=== PATIENT | female | born 1990 | race Caucasian/White ===

== ENCOUNTER 2017-06-20 16:15 | Inpatient (IN) | payer MEDICAID ==
[~2017-06-20] VITALS: Ht 154.9 cm; Wt 46.7 kg
--- NOTE | 2017-06-20 16:35 | NUR ---
PT TO ER BED 16 WAS SEEN AT [facility]RGENT [facility]ARE AND WAS ADVISED TO GO TO ER BECAUSE OF FAST HEART RATE. PT IS C/O GENERALIZED WEAKNESS, N/V SINCE YESTERDAY. C/O FACIAL AND BLE EDEMA. GOWNED AND PLACED ON MONITOR. TACHY OTHERWISE STABLE VITALS. AWAITING MD [facility].
--- NOTE | 2017-06-20 16:50 | NUR ---
DRPHAM AT BEDSIDE FOR EVAL.
[2017-06-20] MEDS ORDERED: IV NS 0.9% 1,000 ML BAG IV ONE (17:00)
--- NOTE | 2017-06-20 17:05 | NUR ---
IV LINE STARTED BLOOD DRAWN AND SENT TO LAB.
--- NOTE | 2017-06-20 17:08 | NUR ---
RADIOLOGY AT BEDSIDE FOR CHEST XRAY.
[2017-06-20 17:19] LABS: CALCIUM, SERUM 8.1 mg/dL (8.5-10.1); CREATININE 0.5 mg/dL (0.6-1.3)
[2017-06-20 17:24] LABS: INR 1.23 (0.85-1.15)
[2017-06-20 17:25] LABS: ALBUMIN 3.6 g/dL (3.4-5.0); BILIRUBIN,DIRECT 0.3 mg/dL (0.0-0.2); BILIRUBIN,TOTAL 1.4 mg/dL (0.2-1.0); TOTAL PROTEIN, SERUM 6.4 g/dL (6.4-8.2)
[2017-06-20 17:37] LABS: EOSINOPHILS % (AUTO) 0.6 % (0.0-6.0); LYMPHOCYTES # (AUTO) 0.6 /CMM (0.8-4.8); LYMPHOCYTES % (AUTO) 25.1 % (20.0-44.0); MEAN CORPUSCULAR HEMOGLOBIN 28 PG (26.0-33.0); MEAN CORPUSCULAR HGB CONC 34 g/dl (31.0-36.0); MEAN CORPUSCULAR VOLUME 82 fL (82-100); MONOCYTES % (AUTO) 0.7 % (2.0-12.0); NEUTROPHILS # (AUTO) 1.8 /CMM (1.8-8.9); NEUTROPHILS % (AUTO) 73.6 % (43.0-81.0); PLATELET COUNT (AUTO) 80 /CMM (150-450); RDW COEFFICIENT OF VARIATION 45.3 (11.5-15.0); WHITE BLOOD COUNT (AUTO) 2.5 K/uL (4.3-11.0)
[2017-06-20 17:39] LABS: RED BLOOD CELL COUNT(AUTO) 1.02 MIL/uL (4.0-5.2)
[2017-06-20 17:40] LABS: HEMOGLOBIN 2.9 g/dL (11.5-14.8)
[2017-06-20 17:41] LABS: HEMATOCRIT 8 % (33-45)
--- NOTE | 2017-06-20 18:10 | NUR ---
CALLED [employer]. SAMPLE DISTRIBUTOR WAS PAGED.
[2017-06-20 18:20] LABS: LYMPHOCYTES % (MANUAL) 28 % (16-48); NEUTROPHILS % (MANUAL) 72 (42-76)
[2017-06-20] MEDS ORDERED: FERR-58 PO (18:23)
--- NOTE | 2017-06-20 18:24 | NUR ---
CALLED DR WHITNEY, LEFT VOICEMAIL.
--- NOTE | 2017-06-20 18:35 | NUR ---
BLOOD TRANSFUSION STARTED AND VERIFIED W/ ANKUSH OTERO. WILL MONITOR VITALS.
--- NOTE | 2017-06-20 20:32 | NUR ---
REPORT GIVEN TO CARLA. PT AWAITING TRANSFER TO FLOOR.
[2017-06-20] MEDS ORDERED: ACETAMINOPHEN 325 MG TABLET ONE (20:38)
--- NOTE | 2017-06-20 20:39 | NUR ---
DR SOARES MADE AWARE OF LOW GRADE FEVER. TYLENOL 650 MG PO GIVEN. PER DR SOARES VERBAL ORDER.
--- NOTE | 2017-06-20 21:45 | NUR ---
2ND UNIT BLOOD STARTED. PT IS STABLE. NO ADVERSE REACTION NOTED. WILL CONTINUE TO MONITOR.
--- NOTE | 2017-06-20 22:14 | NUR ---
PT TRASFERRED TO [facility]. STABLE CONDITION.
[2017-06-20 22:15] VITALS: BP 107/60
--- NOTE | 2017-06-20 22:57 | NUR ---
SPOKE TO MD WHITNEY FOR ADMIT ORDERS, TOTAL OF 6 UNITS PRBC TO BE TRANSFUSED, RECHECK CBC, CMP AFTER 6 UNITS COMPLETED .
[2017-06-20 23:00] VITALS: BP 101/63
[2017-06-20] MEDS ORDERED: ACETAMINOPHEN 325 MG TABLET PO PRN (23:00)
[2017-06-20] MEDS ORDERED: ZOLPIDEM TARTRATE 10 MG TABLET PO PRN (23:00)
[2017-06-20] MEDS ORDERED: ONDANSETRON HCL/PF 4 MG/2 ML VIAL IV PRN (23:00)
[2017-06-20] MEDS ORDERED: diphenhydrAMINE HCL 50 MG/ML VIAL IV PRN (23:00)
[2017-06-21] VITALS (20 sets, daily range): BP systolic 96–120; BP diastolic 51–72
--- NOTE | 2017-06-21 01:17 | NUR ---
3RD PRBC UNIT STARTED, VS STABLE
--- NOTE | 2017-06-21 04:03 | NUR ---
4TH PRBC UNIT STARTED, VS STABLE
--- NOTE | 2017-06-21 06:19 | NUR ---
5TH PRBC UNIT STARTED, VS STABLE
--- NOTE | 2017-06-21 08:00 | NUR ---
[facility]/RN PT IS IN THE BED ON RA ,SAT O2-100%.RECEIVING BLOOD TRANSFUSION ,BAG #5.V/S STABLE,AFEBRILE.NO PAIN REPORTED AT THIS TIME, NO S/S OF REACTION NOTED. FAMILY AT BEDSIDE.
[2017-06-21] MEDS ORDERED: PANTOPRAZOLE 40 MG TABLET.DR PO SCH (08:30)
--- NOTE | 2017-06-21 11:32 | NUR ---
[facility]/RN 6 UNITS PRBC GIVEN ORDERED.V/S STABLE ,AFEBRILE.PT TOLERATED WELL,NO S/S OF REACTION NOTED.LABS IS ORDERED.CONTINUE MONITORING.
[2017-06-21 13:10] LABS: ALBUMIN 3.1 g/dL (3.4-5.0); BILIRUBIN,TOTAL 1.8 mg/dL (0.2-1.0); CALCIUM, SERUM 7.9 mg/dL (8.5-10.1); CREATININE 0.5 mg/dL (0.6-1.3); POTASSIUM 4.5 mmol/L (3.5-5.1); TOTAL PROTEIN, SERUM 6.2 g/dL (6.4-8.2)
[2017-06-21 13:55] LABS: IRON, SERUM 77 ug/dl (50-175); TOTAL IRON BINDING CAPACITY 230 ug/dl (250-450)
[2017-06-21] MEDS ORDERED: SOD FERRIC GLUC 125 MG in IV NS 0.9% 100 ML IV SCH (14:00)
[2017-06-21 15:17] LABS: BASOPHILS % (AUTO) 0.1 % (0.0-2.0); EOSINOPHILS # (AUTO) 0.1 /CMM (0.0-0.7); EOSINOPHILS % (AUTO) 1.9 % (0.0-6.0); HEMATOCRIT 37 % (33-45); HEMOGLOBIN 12.9 g/dL (11.5-14.8); LYMPHOCYTES % (AUTO) 36.1 % (20.0-44.0); MEAN CORPUSCULAR HEMOGLOBIN 30 PG (26.0-33.0); MEAN CORPUSCULAR HGB CONC 35 g/dl (31.0-36.0); MEAN CORPUSCULAR VOLUME 86 fL (82-100); MONOCYTES % (AUTO) 0.7 % (2.0-12.0); NEUTROPHILS # (AUTO) 1.6 /CMM (1.8-8.9); NEUTROPHILS % (AUTO) 61.2 % (43.0-81.0); RDW COEFFICIENT OF VARIATION 16.3 (11.5-15.0); WHITE BLOOD COUNT (AUTO) 2.7 K/uL (4.3-11.0)
[2017-06-21 15:36] LABS: PLATELET COUNT (AUTO) 46 /CMM (150-450)
[2017-06-21 15:43] LABS: EOSINOPHILS % (MANUAL) 1 % (0-4); LYMPHOCYTES % (MANUAL) 38 % (16-48); MONOCYTES % (MANUAL) 1 % (0-11.0); NEUTROPHILS % (MANUAL) 60 (42-76)
--- NOTE | 2017-06-21 16:21 | NUR ---
[facility]/[employer] CONSULTANT TEST DONE H/H-12..PLT -46.DR WHITNEY NITRIFIED.OK TO D/C PT HOME .AND FOLLOW UP WITH ONLINE PUBLISHER,TOWER ATTENDANT AND PRIMARY MD.IV REMOVED .EXIT CARE DONE.
--- NOTE | 2017-06-21 17:00 | NUR ---
[facility]/RN PT D/C HOME WITH FAMILY.
== END 2017-06-21 16:19 | disposition home or self-care (01) | DRG 532 ==
LOC: ER 16:20 → TELE-TD 21:51 → MEDSG1 06-21 08:56
PROVIDERS: ADMIT Internal Medicine; ATTEND Internal Medicine
PROC: 30233N1 Transfusion of Nonautologous Red Blood Cells into Peripheral Vein, Percutaneous Approach (ICD-10-PCS; principal; 2017-06-20)
DX: N93.9 Abnormal uterine and vaginal bleeding, unspecified (principal); D61.818 Other pancytopenia; N83.202 Unspecified ovarian cyst, left side; D62 Acute posthemorrhagic anemia; D50.0 Iron deficiency anemia secondary to blood loss (chronic)
CPT/HCPCS: 36415; 71045-TC; 76856-TC; 80048-TC; 80053-TC; 80076-TC; 82728-TC; 83540-TC; 84439-TC; 84443-TC; 85025-TC; 85730-TC; 86850-TC; 86921-TC; 87081-TC; A4606; J2916; J7030; J7040; J7050; J7060; P9016-BL; Z7610